=== PATIENT | female | born 1995 | race American Indian/Alaskan Native ===

== ENCOUNTER 2017-07-09 04:48 | Outpatient (CLI) | payer MEDICAID ==
[2017-07-09 05:09] VITALS: BP 99/62
[2017-07-09] MEDS ORDERED: LACTATED RINGERS 1,000 ML IV ONE (05:20)
[2017-07-09 06:00] LABS: Bilirubin,Urine NEG (Negative); Blood,Urine NEG (Negative); Ketones,Urine 20 mg/dL (Negative); Leukocyte Esterase,Urine NEG (Negative); Mucus,Urine 2+ /HPF; Nitrite,Urine NEG (Negative)
== END 2017-07-09 06:39 | disposition home or self-care (01) ==
LOC: TRG 04:48
PROVIDERS: ATTEND Obstetrics & Gynecology
DX: O47.03 False labor before 37 completed weeks of gestation, third trimester (principal); Z3A.36 36 weeks gestation of pregnancy
CPT/HCPCS: 81001